=== PATIENT | male | born 1965 | race African-American/Black ===

== ENCOUNTER 2023-01-02 14:06 | Emergency (ER) | payer BC, SELFPAY ==
--- NOTE | ~2023-01-02 | CT_ITS ---
EXAMINATION: CT brain wo con DATE: 01/02/2023 16:04 INDICATION: Double vision . TECHNIQUE: Computed tomography (CT) of the head was performed without intravenous contrast. The mA wa s adjusted according to patient size. Iterative reconstruction technique was employed. The dose-lengt h product was 681.00 mGy-cm. COMPARISON: None. FINDINGS: No acute intracranial hemorrhage or extra-axial fluid collection. No hydrocephalus, mass, or herniation. No acute ischemic infarct. Unremarkable dural venous sinus attenuation. No acute osseous abnormality. The aerated spaces are clear. Mild intracranial atherosclerotic calcifications IMPRESSION: No acute intracranial process. Reviewed, dictated and finalized at location K.
[2023-01-02 14:22] VITALS: BP 130/88; PULSE 81; RESP 18; TEMP 36.4; O2SAT 98
[2023-01-02 15:35] VITALS: BP 148/96; PULSE 87; O2SAT 99
[2023-01-02 16:09] LABS: Basophils Percent Auto 0.3 % (0.2-1.2); Eosinophils Absolute Auto 0.1 K/mm3 (0-0.3); Eosinophils Percent Auto 2.5 % (0-4.4); Hematocrit 46.8 % (42.0-52.0); Hemoglobin 15.9 g/dL (14.0-18.0); Immature Granulocyte Absolute 0.01 K/mm3 (0.00-0.031); Immature Granulocyte Percent A 0.3 % (0-0.5); Lymphocytes Absolute Auto 1.81 K/mm3 (0.9-3.2); Lymphocytes Percent Auto 56.9 % (18.3-44.2); Mean Corpuscular Hemoglobin 30.2 pg (26-34); Mean Corpuscular Volume 88.8 fl (80-100); Mean Platelet Volume 10.8 fl (7.4-10.4); Monocytes Absolute Auto 0.3 K/mm3 (0.1-0.6); Monocytes Percent Auto 10.1 % (2.6-8.5); Neutrophils Percent Auto 29.9 % (45.5-73.1); Platelet Count Result 158 k/mm3 (150-375); Red Blood Count 5.27 M/mm3 (4.6-6.20); Red Cell Distribution Width 12.1 % (11.5-14.5); White Blood Count 3.2 K/mm3 (4.5-10.0)
[2023-01-02 16:19] LABS: Alanine Aminotransferase 21 U/L (6-50); Albumin Level 3.9 g/dL (3.5-5.1); Alkaline Phosphatase 82 U/L (38-126); Anion Gap -1 mmol/L (8-16); Aspartate Amino Transferase 31 U/L (17-59); Blood Urea Nitrogen 6 mg/dL (9-20); Calcium 8.2 mg/dL (8.4-10.2); Carbon Dioxide 36 mmol/L (22-30); Chloride 103 mmol/L (98-107); Estimated CRCL calculation 92 ml/min; Estimated Glomerular Filt Rate > 60; Glucose 87 mg/dL (65-110); Potassium 4.1 mmol/L (3.4-5.0); Sodium 138 mmol/L (137-145)
--- NOTE | 2023-01-02 17:29 | ED.GENADULT ---
HPI - General Adult General Chief complaint: Eye Problems Stated complaint: double vision Time Seen by Provider: 01/02/23 15:50 History of Present Illness HPI narrative: 57-year-old male presented to the emergency department for evaluation of blurred vision that occurs only at nighttime while he is driving. Patient denies any double vision currently, patient states he does not have double vision when he is not driving. Patient denies any headache, patient has not had follow-up with ophthalmology. Review of Systems Review of Systems: All systems reviewed & are unremarkable except as noted in HPI and below Exam Narrative: APPEARANCE: Well appearing, no pain, no distress, well-nourished. HEAD: normocephalic, atraumatic. EYES: PERRLA/EOMI, conjunctivae clear. No double vision, visual soto intact NOSE: Normal no drainage EARS:TMS clear with good light reflex. THROAT: Pharynx clear, no exudate. NECK: Supple. No adenopathy, no masses. RESPIRATORY: Airway patent, respirations nonlabored. Clear to auscultation bilaterally, no rales, rhonchi, wheezing. CARDIOVASCULAR: Regular rate and rhythm without murmurs rubs or gallops. ABDOMINAL: Soft, nontender, nondistended, normal bowel sounds MUSCULOSKELETAL: Moves all extremities. Strength/ROM intact, No edema, No calf tenderness. NEURO: Alert. Cranial nerves II through XII intact. Grossly intact SKIN: Warm, dry. Normal Color Course Course Emergency Course: 57-year-old male with report of double vision at nighttime only. Patient declines any current television and has a normal CT and normal neuro exam with no current double vision. Patient was encouraged of close follow-up with ophthalmology for a possible stigmatism. All questions and concerns were addressed Vital Signs Vital signs: Vital Signs Temperature 97.5 F L 01/02/23 14:22 Pulse Rate 81 01/02/23 14:22 Respiratory Rate 18 01/02/23 14:22 Blood Pressure 130/88 01/02/23 14:22 Pulse Oximetry 98 01/02/23 14:22 Oxygen Delivery Room Air 01/02/23 14:22 Temperature 97.5 F L 01/02/23 14:22 Pulse Rate 68 01/02/23 17:40 Respiratory Rate 15 01/02/23 17:40 Blood Pressure 142/86 H 01/02/23 17:40 Pulse Oximetry 99 01/02/23 17:40 Oxygen Delivery Room Air 01/02/23 14:22 Medical Decision Making Differential Diagnosis Differential Diagnosis: Astigmatism, intracranial abnormality Vital Signs Vital Signs: Vital Signs Temperature 97.5 F L 01/02/23 14:22 Pulse Rate 81 01/02/23 14:22 Respiratory Rate 18 01/02/23 14:22 Blood Pressure 130/88 01/02/23 14:22 Pulse Oximetry 98 01/02/23 14:22 Oxygen Delivery Room Air 01/02/23 14:22 Temperature 97.5 F L 01/02/23 14:22 Pulse Rate 68 01/02/23 17:40 Respiratory Rate 15 01/02/23 17:40 Blood Pressure 142/86 H 01/02/23 17:40 Pulse Oximetry 99 01/02/23 17:40 Oxygen Delivery Room Air 01/02/23 14:22 Lab Data Lab results reviewed: Yes I reviewed the patient's lab results. 01/02/23 15:57 01/02/23 15:57 Labs: Lab Results 01/02/23 Range/Units 15:57 WBC 3.2 L (4.5-10.0) K/mm3 RBC 5.27 (4.6-6.20) M/mm3 Hgb 15.9 (14.0-18.0) g/dL Hct 46.8 (42.0-52.0) % MCV 88.8 (80-100) fl MCH 30.2 (26-34) pg MCHC 34.0 (32-36) g/dl RDW 12.1 (11.5-14.5) % Plt Count 158 (150-375) k/mm3 MPV 10.8 H (7.4-10.4) fl Immature Gran % (Auto) 0.3 (0-0.5) % Neut % (Auto) 29.9 L (45.5-73.1) % Lymph % (Auto) 56.9 H (18.3-44.2) % [place] % (Auto) 10.1 H (2.6-8.5) % Eos % (Auto) 2.5 (0-4.4) % Baso % (Auto) 0.3 (0.2-1.2) % Lymph # (Auto) 1.81 (0.9-3.2) K/mm3 [place] # (Auto) 0.3 (0.1-0.6) K/mm3 Eos # (Auto) 0.1 (0-0.3) K/mm3 Baso # (Auto) 0.0 (0.0-0.1) K/mm3 Abs Immat Gran (auto) 0.01 (0.00-0.031) K/mm3 Absolute Neuts (auto) 1.0 L (1.3-6.7) K/mm3 Absolute Nucleated RBC 0.0 (0.0-0.012) K/mm3 Nucleated RBC % 0.0 (0.0-0.2) % Sodium 138 (137-14
[2023-01-02 17:40] VITALS: BP 142/86; PULSE 68; RESP 15; O2SAT 99
== END 2023-01-02 17:41 | disposition home or self-care (01) ==
PROVIDERS: Emergency Provider Emergency Medicine; PCP Internal Medicine
DX: H53.2 Diplopia (principal)
CPT/HCPCS: 36415; 70450; 80053; 85025; 99284